=== PATIENT | female | born 1970 | race Caucasian/White ===

== ENCOUNTER 2018-05-15 20:45 | Inpatient (IN) | payer MEDICAID ==
[~2018-05-15] VITALS: Ht 162.6 cm; Wt 67.6 kg
--- NOTE | ~2018-05-15 | MORECARE ---
CASE MANAGEMENT DISCHARGE SUMMARY PATIENT: LUPIS SLOAN UNIT: [id number] ADM DATE: 05/15/18 AGE: 47 : 66 SEX: F ROOM/BED: D.1211 AUTHOR: RORO,DOC PHYSICIAN: REFERRING PHYSICIAN: ANUPAMA PETERS MD DATE OF SERVICE: 05/23/18 Discharge Plan Patient Name: LUPIS SLOAN Facility: [facility]:[place] : 1970 Planned Disposition: Home Anticipated Discharge Date: 05/23/18 Discharge Date: 05/23/2018 Expected LOS: 8 Initial Reviewer: [email or web address] Initial Review Date: 05/23/2018 Generated: 05/23/18 5:38 pm Comments DCP- Discharge Planning Updated by [email or web address]: Tony Titus on 05/23/18 3:[address] Patient Name: LUPIS SLOAN Admission Status: ER Accout number: [id number] Admission Date: 05-15-2018 : 1970 Admission Diagnosis: Attending: ANUPAMA PETERS Current LOS: 8 Anticipated DC Date: 05-23-2018 Planned Disposition: Home Primary Insurance: MEDICAID [place] PENDING Discharge Planning Comments: CM ATTEMPTED TO MEET WITH PT IN ROOM, PT GONE. BEDSIDE NURSE ADVISED PT MAY BE OUTSIDE HOSPITAL SMOKING. CM LATER MET WITH PT IN ROOM TO DISCUSS DISCHARGE PLANNING AND NEEDS. PT REPORTS LIVING AT HOME INDEPENDENTLY AND ALONE. PT HAS NO MEDICAL EQUIPMENT AND NO OUTSIDE SERVICES ASSISTING IN THE HOME. CM DISCUSSED AVAILABILITY OF HOME HEALTH, REHAB SERVICES AND MEDICAL EQUIPMENT. PT DENIES DISCHARGE NEEDS, REPORTS HER EX BROTHER IN LAW WILL PICK HER UP FOR DISCHARGE HOME. PT UNHAPPY ABOUT DISCHARGING AND REPORTS SHE HAS BEEN WAITING FOR DAYS FOR TEST RESULTS AND DOES NOT WANT TO LEAVE WITHOUT THEM. CM ASKED ABOUT WHAT TEST RESULTS, PT DID NOT KNOW, STATES THAT IT WOULD TELL THEM WHAT ANTIBIOTIC TO USE. CM REVIEWED DOCTORS NOTE WHICH INDICATED PT HAS E COLI. CM DISCUSSED THIS WITH PT AND INFORMED PT THAT THE DOCTOR PRESCRIBED ANTIBIOTIC FOR HOME USE BASED ON TEST RESULT. PT STATES THAT SHE DOES NOT WANT TO LEAVE AND WANTS TO SEE THE BLONDE DOCTOR WHO WAS IN HERE EARLIER. CM EXPLAINED TO PT THAT SHE HAS NO ACUTE NEED TO REMAIN IN THE HOSPITAL, HAS THE ABILITY TO LEAVE THE HOSPITAL AND WALK OUT ON FOOT TO SMOKE CIGARETTES, THE TESTING HAS BEEN DONE AND ORAL ANTIBIOTICS HAVE BEEN PRESCRIBED. PT AGAIN STATES SHE WANTS TO SEE THE DOCTOR. CM NOTIFIED BEDSIDE NURSE AND DR. FERRER. PT HAS NOT REPORTED DISCHARGE NEEDS, STATES A FRIEND WILL BE PICKING HER UP AT DISCHARGE. Food And Beverage Assistant: Tony Titus DCP- Discharge Planning Updated by [email or web address]: Freya Dejesus on 05/21/18 10:[address] AWAITING URINE CX SENSITIVES TO DETERMINE APPROPRIATE ANTIBIOTIC FOR DISCHARGE. WHEN RESULTS RECEIVED , WILL SWITCH TO PO AB AND DISCHARGE TO HOME PER MD NOTE. DCPIA - Discharge Planning Initial Assessment Updated by [id number]: Tony Titus on 05/23/18 4:24 pm * Is the patient Alert and Oriented? Yes * How many steps to enter\exit or inside your home? * PCP NONE * Pharmacy [facility] IN [place] * Preadmission Environment Home Alone * ADLs Independent * Equipment None * Other Equipment NO MEDICAL EQUIPMENT PROVIDER PREFERNCE * List name and contact numbers for known caregivers / representatives who currently or will assist patient after discharge: JONATHON BAEZ, EX BROTHER IN LAW, * Verbal permission to speak to the caregivers and representatives has been obtained from the patient. N/A * Community resources currently utilized None * Please name any agencies selected above. none * Additional services required to return to the preadmission environment? No * Can the patient safely return to the preadmission environment? Yes * Has this patient been hospitalized within the prior 30 days at any hospital? No Last DP export: 05/23/18 3:25 Patient Name: LUPIS SLOAN Page [id number] at 1638 All edits/amendments must be made on the electronic document DICTATION DATE: 05/23/18 163 CRM SPECIALIST: LISA 05/23/18 1638 RPT#: [id number] DC DATE:05/23/18 STATUS: DIS IN [facility] [address] [place] [address] END OF REPORT
--- NOTE | ~2018-05-15 | MORECARE ---
CASE MANAGEMENT DISCHARGE SUMMARY PATIENT: LUPIS SLOAN UNIT: [id number] ADM DATE: 05/15/18 AGE: 47 : 66 SEX: F ROOM/BED: D.1211 AUTHOR: HANNAH READ PHYSICIAN: REFERRING PHYSICIAN: ANUPAMA PETERS MD DATE OF SERVICE: 05/23/18 Discharge Plan Patient Name: LUPIS SLOAN Facility: [facility]:[place] : 1970 Planned Disposition: Home Anticipated Discharge Date: 05/23/18 Discharge Date: 05/23/2018 Expected LOS: 8 Initial Reviewer: [email or web address] Initial Review Date: 05/23/2018 Generated: 05/23/18 5:25 pm Comments DCP- Discharge Planning Updated by [email or web address]: Freya Dejesus on 05/21/18 10:[address] AWAITING URINE CX SENSITIVES TO DETERMINE APPROPRIATE ANTIBIOTIC FOR DISCHARGE. WHEN RESULTS RECEIVED , WILL SWITCH TO PO AB AND DISCHARGE TO HOME PER MD NOTE. DCPIA - Discharge Planning Initial Assessment Updated by [email or web address]: Tony Titus on 05/23/18 4:24 pm * Is the patient Alert and Oriented? Yes * How many steps to enter\exit or inside your home? * PCP NONE * Pharmacy [facility] * Preadmission Environment Home Alone * ADLs Independent * Equipment None * Other Equipment NO MEDICAL EQUIPMENT PROVIDER PREFERNCE * List name and contact numbers for known caregivers / representatives who currently or will assist patient after discharge: JONATHON BAEZ, EX BROTHER IN [facility], * Verbal permission to speak to the caregivers and representatives has been obtained from the patient. N/A * Community resources currently utilized None * Please name any agencies selected above. none * Additional services required to return to the preadmission environment? No * Can the patient safely return to the preadmission environment? Yes * Has this patient been hospitalized within the prior 30 days at any hospital? No Patient Name: LUPIS SLOAN Page [id number] at 1625 All edits/amendments must be made on the electronic document DICTATION DATE: 12/5 RELIEF MAN: DM 05/23/18 1625 RPT#: [id number] DC DATE:05/23/18 STATUS: DIS IN [facility] [address] [place] [address] END OF REPORT
[2018-05-15 22:01] LABS: ALBUMIN 3.1 g/dL (3.4-5.0); ALKALINE PHOSPHATASE 64 U/L (46-116); ALT (SGPT) 62 U/L (10-68); BILIRUBIN - TOTAL 0.49 mg/dL (0.2-1.3); CALC OSMOLALITY 277 mosm/kg (275-300); CALCIUM 8.4 mg/dL (8.5-10.1); CARBON DIOXIDE 27.8 mmol/L (21.0-32.0); CHLORIDE - SERUM 101 mmol/L (98-107); CREATININE - SERUM 1.1 mg/dL (0.6-1.3); GLUCOSE 111 mg/dL (74-106); POTASSIUM - SERUM 4.1 mmol/L (3.5-5.1); PROTEIN - SERUM 7.5 g/dL (6.4-8.2); SODIUM 138 mmol/L (136-145); UREA NITROGEN 14 mg/dL (7-18); eGFR NON AFRICAN AMERICAN 56 mL/min (90-120)
[2018-05-15 22:09] LABS: AMYLASE - SERUM 59 U/L (25-115); BASOPHILS 0.1 % (0-2); EOSINOPHILS 0.7 % (0-7); HEMATOCRIT 37.4 % (36.0-48.0); HEMOGLOBIN 12.9 g/dL (12-16); IMMATURE GRANULOCYTES 0.3 % (0-5); LIPASE 184 U/L (73-393); LYMPHOCYTES 26.4 % (15-50); MCH 32.7 pg (26.0-34.0); MCHC 34.5 g/dL (31.0-37.0); MCV 94.7 fL (80.0-100.0); MEAN PLATELET VOLUME 9.2 fL (7.4-10.4); MONOCYTES 15.2 % (2-11); NEUTROPHILS 57.3 % (40-80); PLATELET COUNT 296 10x3/uL (130-400); RBC 3.95 10x6/uL (4.00-5.40); RDW 13.1 % (11.5-14.5); TROPONIN-I < 0.017 ng/mL (0.000-0.060); WBC 10.5 10x3/uL (4.8-10.8)
[2018-05-15 22:28] LABS: APPEARANCE HAZY (CLEAR); BILIRUBIN NEGATIVE (NEGATIVE); COLOR YELLOW (YELLOW); GLUCOSE NEGATIVE (NEGATIVE); KETONE NEGATIVE (NEGATIVE); NITRITE POSITIVE (NEGATIVE); PROTEIN NEGATIVE (NEGATIVE); UROBILINOGEN NORMAL (NORMAL)
[2018-05-15 22:31] LABS: BACTERIA MANY /hpf (NONE SEEN); EPITHELIAL CELLS 0-5 /hpf (0-5); RED CELLS - URINE 0-5 /hpf (0-5)
[2018-05-15 23:11] LABS: HCG URINE NEGATIVE (NEGATIVE)
[2018-05-16] VITALS (7 sets, daily range): BP systolic 95–122; BP diastolic 35–92; BMI 24.0
[2018-05-16 06:22] LABS: BASOPHILS 0.1 % (0-2); EOSINOPHILS 1.4 % (0-7); HEMATOCRIT 34.4 % (36.0-48.0); HEMOGLOBIN 11.7 g/dL (12-16); IMMATURE GRANULOCYTES 0.3 % (0-5); LYMPHOCYTES 33.6 % (15-50); MCH 32.2 pg (26.0-34.0); MCV 94.8 fL (80.0-100.0); MEAN PLATELET VOLUME 9.1 fL (7.4-10.4); MONOCYTES 15.4 % (2-11); NEUTROPHILS 49.2 % (40-80); PLATELET COUNT 241 10x3/uL (130-400); RBC 3.63 10x6/uL (4.00-5.40)
[2018-05-16 06:53] LABS: ALBUMIN 2.4 g/dL (3.4-5.0); ALKALINE PHOSPHATASE 50 U/L (46-116); ALT (SGPT) 48 U/L (10-68); BILIRUBIN - TOTAL 0.38 mg/dL (0.2-1.3); CALC OSMOLALITY 285 mosm/kg (275-300); CALCIUM 7.8 mg/dL (8.5-10.1); CARBON DIOXIDE 24.9 mmol/L (21.0-32.0); CHLORIDE - SERUM 111 mmol/L (98-107); CREATININE - SERUM 0.8 mg/dL (0.6-1.3); GLUCOSE 106 mg/dL (74-106); SODIUM 144 mmol/L (136-145); UREA NITROGEN 10 mg/dL (7-18); eGFR NON AFRICAN AMERICAN 81 mL/min (90-120)
[2018-05-16 14:31] LABS: % SATURATION 5 % (15-55); IRON 18 ug/dl (35-150); TOTAL IRON BIND CAPACITY 319 ug/dl (260-445); UNSAT IRON BIND CAPACITY 301 ug/dl (150-375)
[2018-05-16 21:42] LABS: UDS - AMPHET POSITIVE QUAL (NEGATIVE); UDS - BARB NEGATIVE QUAL (NEGATIVE); UDS - BENZO NEGATIVE QUAL (NEGATIVE); UDS - COCAINE NEGATIVE QUAL (NEGATIVE); UDS - OPIATE POSITIVE QUAL (NEGATIVE); UDS - PCP NEGATIVE QUAL (NEGATIVE); UDS - THC POSITIVE QUAL (NEGATIVE)
[2018-05-17] VITALS: BP 120/73
[2018-05-17 04:28] VITALS: BP 108/67
[2018-05-17 06:49] LABS: BASOPHILS 0.1 % (0-2); EOSINOPHILS 1.2 % (0-7); HEMOGLOBIN 10.8 g/dL (12-16); IMMATURE GRANULOCYTES 0.3 % (0-5); LYMPHOCYTES 25.8 % (15-50); MCHC 33.8 g/dL (31.0-37.0); MCV 94.7 fL (80.0-100.0); MEAN PLATELET VOLUME 9.1 fL (7.4-10.4); MONOCYTES 14.6 % (2-11); PLATELET COUNT 241 10x3/uL (130-400); RBC 3.38 10x6/uL (4.00-5.40); RDW 13.4 % (11.5-14.5); WBC 6.9 10x3/uL (4.8-10.8)
[2018-05-17 07:02] LABS: CALC OSMOLALITY 277 mosm/kg (275-300); CALCIUM 7.3 mg/dL (8.5-10.1); CARBON DIOXIDE 24.3 mmol/L (21.0-32.0); CHLORIDE - SERUM 108 mmol/L (98-107); CREATININE - SERUM 0.7 mg/dL (0.6-1.3); GLUCOSE 99 mg/dL (74-106); POTASSIUM - SERUM 3.8 mmol/L (3.5-5.1); SODIUM 141 mmol/L (136-145); UREA NITROGEN 5 mg/dL (7-18); eGFR NON AFRICAN AMERICAN > 90 mL/min (90-120)
[2018-05-17 07:29] LABS: FOLATE (FOLIC ACID) - SERUM 8.7 ng/mL (>3.0)
[2018-05-17 07:40] VITALS: BP 108/65
[2018-05-17 12:05] VITALS: BP 114/68
[2018-05-17 20:00] VITALS: BP 120/70
[2018-05-18 00:30] VITALS: BP 123/72
[2018-05-18 03:51] VITALS: BP 120/58
[2018-05-18 05:50] LABS: BASOPHILS 0 % (0-2); EOSINOPHILS 2.3 % (0-7); HEMATOCRIT 32.9 % (36.0-48.0); HEMOGLOBIN 11.1 g/dL (12-16); LYMPHOCYTES 40.8 % (15-50); MCH 32.1 pg (26.0-34.0); MCHC 33.7 g/dL (31.0-37.0); MCV 95.1 fL (80.0-100.0); MONOCYTES 13.5 % (2-11); NEUTROPHILS 43.4 % (40-80); PLATELET COUNT 248 10x3/uL (130-400); RBC 3.46 10x6/uL (4.00-5.40); RDW 13.4 % (11.5-14.5)
[2018-05-18 05:59] LABS: WBC 5.1 10x3/uL (4.8-10.8)
[2018-05-18 06:16] LABS: CALC OSMOLALITY 282 mosm/kg (275-300); CALCIUM 7.5 mg/dL (8.5-10.1); CHLORIDE - SERUM 111 mmol/L (98-107); CREATININE - SERUM 0.6 mg/dL (0.6-1.3); GLUCOSE 75 mg/dL (74-106); POTASSIUM - SERUM 3.8 mmol/L (3.5-5.1); SODIUM 144 mmol/L (136-145); UREA NITROGEN 5 mg/dL (7-18); eGFR NON AFRICAN AMERICAN > 90 mL/min (90-120)
[2018-05-18 07:45] VITALS: BP 120/73
[2018-05-18 11:48] VITALS: BP 125/73
[2018-05-18 19:34] VITALS: BP 97/60
[2018-05-19 00:04] VITALS: BP 119/65
[2018-05-19 05:06] VITALS: BP 147/91
[2018-05-19 06:40] LABS: BASOPHILS 0.2 % (0-2); HEMATOCRIT 32.7 % (36.0-48.0); HEMOGLOBIN 10.9 g/dL (12-16); IMMATURE GRANULOCYTES 0.2 % (0-5); LYMPHOCYTES 37.5 % (15-50); MCH 31.6 pg (26.0-34.0); MCHC 33.3 g/dL (31.0-37.0); MCV 94.8 fL (80.0-100.0); MEAN PLATELET VOLUME 9.3 fL (7.4-10.4); MONOCYTES 10.4 % (2-11); NEUTROPHILS 49.7 % (40-80); RBC 3.45 10x6/uL (4.00-5.40); RDW 13.3 % (11.5-14.5)
[2018-05-19 06:42] LABS: PLATELET COUNT 299 10x3/uL (130-400); WBC 6.4 10x3/uL (4.8-10.8)
[2018-05-19 06:50] LABS: CALC OSMOLALITY 276 mosm/kg (275-300); CARBON DIOXIDE 24.8 mmol/L (21.0-32.0); CHLORIDE - SERUM 108 mmol/L (98-107); GLUCOSE 85 mg/dL (74-106); POTASSIUM - SERUM 3.7 mmol/L (3.5-5.1); SODIUM 141 mmol/L (136-145); UREA NITROGEN 5 mg/dL (7-18); eGFR NON AFRICAN AMERICAN 81 mL/min (90-120)
[2018-05-19 06:51] LABS: CREATININE - SERUM 0.8 mg/dL (0.6-1.3)
[2018-05-19 08:21] VITALS: BP 152/91
[2018-05-19 12:55] VITALS: BP 142/92
[2018-05-19 16:18] VITALS: BP 125/75
[2018-05-19 20:00] VITALS: BP 145/78
[2018-05-20 04:00] VITALS: BP 157/85
[2018-05-20 07:25] VITALS: BP 141/83
[2018-05-20 07:28] LABS: BASOPHILS 0.2 % (0-2); HEMOGLOBIN 11.2 g/dL (12-16); IMMATURE GRANULOCYTES 0.3 % (0-5); LYMPHOCYTES 32.2 % (15-50); MCH 31.5 pg (26.0-34.0); MCHC 32.9 g/dL (31.0-37.0); MCV 95.5 fL (80.0-100.0); MEAN PLATELET VOLUME 9.3 fL (7.4-10.4); MONOCYTES 9.2 % (2-11); NEUTROPHILS 56.1 % (40-80); PLATELET COUNT 308 10x3/uL (130-400); RBC 3.56 10x6/uL (4.00-5.40); RDW 13.1 % (11.5-14.5)
[2018-05-20 07:47] LABS: CALC OSMOLALITY 282 mosm/kg (275-300); CALCIUM 8.4 mg/dL (8.5-10.1); CARBON DIOXIDE 29.4 mmol/L (21.0-32.0); CHLORIDE - SERUM 108 mmol/L (98-107); CREATININE - SERUM 0.7 mg/dL (0.6-1.3); GLUCOSE 118 mg/dL (74-106); POTASSIUM - SERUM 4.8 mmol/L (3.5-5.1); SODIUM 143 mmol/L (136-145); UREA NITROGEN 5 mg/dL (7-18); eGFR NON AFRICAN AMERICAN > 90 mL/min (90-120)
[2018-05-20 11:32] VITALS: BP 170/98
[2018-05-20 15:23] VITALS: BP 143/84
[2018-05-20 18:00] VITALS: BP 143/78
[2018-05-21 00:30] VITALS: BP 147/81
[2018-05-21 04:00] VITALS: BP 188/100
[2018-05-21 06:52] LABS: BASOPHILS 0.2 % (0-2); EOSINOPHILS 2.3 % (0-7); HEMATOCRIT 33.7 % (36.0-48.0); HEMOGLOBIN 11.2 g/dL (12-16); IMMATURE GRANULOCYTES 0.3 % (0-5); LYMPHOCYTES 32.9 % (15-50); MCH 31.2 pg (26.0-34.0); MCHC 33.2 g/dL (31.0-37.0); MCV 93.9 fL (80.0-100.0); MEAN PLATELET VOLUME 9.2 fL (7.4-10.4); MONOCYTES 8.2 % (2-11); NEUTROPHILS 56.1 % (40-80); PLATELET COUNT 343 10x3/uL (130-400); RBC 3.59 10x6/uL (4.00-5.40); RDW 12.9 % (11.5-14.5)
[2018-05-21 07:11] LABS: CALCIUM 8.1 mg/dL (8.5-10.1); CARBON DIOXIDE 26.6 mmol/L (21.0-32.0); CHLORIDE - SERUM 106 mmol/L (98-107); CREATININE - SERUM 0.8 mg/dL (0.6-1.3); GLUCOSE 108 mg/dL (74-106); SODIUM 142 mmol/L (136-145); eGFR NON AFRICAN AMERICAN 81 mL/min (90-120)
[2018-05-21 07:12] LABS: CALC OSMOLALITY 281 mosm/kg (275-300); POTASSIUM - SERUM 3.7 mmol/L (3.5-5.1); UREA NITROGEN 8 mg/dL (7-18)
[2018-05-21 08:47] VITALS: BP 149/89
[2018-05-21 11:03] VITALS: Ht 162.6 cm; Wt 67.6 kg
[2018-05-21 12:07] VITALS: BP 174/88
[2018-05-21 15:14] VITALS: BP 129/78
[2018-05-21 20:23] VITALS: BP 135/76
[2018-05-22 00:33] VITALS: BP 150/72
[2018-05-22 08:35] VITALS: BP 160/87
[2018-05-22 11:41] LABS: APPEARANCE CLEAR (CLEAR); BILIRUBIN NEGATIVE (NEGATIVE); COLOR YELLOW (YELLOW); GLUCOSE NEGATIVE (NEGATIVE); KETONE NEGATIVE (NEGATIVE); NITRITE POSITIVE (NEGATIVE); PROTEIN NEGATIVE (NEGATIVE); UROBILINOGEN NORMAL (NORMAL); WHITE CELLS - URINE 0-5 /hpf (0-5)
[2018-05-22 11:42] LABS: BACTERIA FEW /hpf (NONE SEEN); EPITHELIAL CELLS 0-5 /hpf (0-5); RED CELLS - URINE 0-5 /hpf (0-5)
[2018-05-22 17:56] VITALS: BP 114/61
[2018-05-22 19:06] LABS: AEROBE ID Final report (()); RESULT 1 Escherichia coli (())
[2018-05-22 20:00] VITALS: BP 102/54
[2018-05-23 00:02] VITALS: BP 105/55
[2018-05-23 04:00] VITALS: BP 132/76
[2018-05-23 06:45] LABS: BASOPHILS 0.3 % (0-2); HEMATOCRIT 40.2 % (36.0-48.0); HEMOGLOBIN 13.4 g/dL (12-16); IMMATURE GRANULOCYTES 1.2 % (0-5); LYMPHOCYTES 30.4 % (15-50); MCH 32.2 pg (26.0-34.0); MCHC 33.3 g/dL (31.0-37.0); MCV 96.6 fL (80.0-100.0); MEAN PLATELET VOLUME 9.4 fL (7.4-10.4); MONOCYTES 11.3 % (2-11); NEUTROPHILS 53.8 % (40-80); PLATELET COUNT 427 10x3/uL (130-400); RBC 4.16 10x6/uL (4.00-5.40); RDW 13.5 % (11.5-14.5); WBC 6.6 10x3/uL (4.8-10.8)
[2018-05-23 07:33] LABS: CALCIUM 9.3 mg/dL (8.5-10.1); CARBON DIOXIDE 30.3 mmol/L (21.0-32.0); CHLORIDE - SERUM 102 mmol/L (98-107); CREATININE - SERUM 0.8 mg/dL (0.6-1.3); GLUCOSE 78 mg/dL (74-106); SODIUM 141 mmol/L (136-145); eGFR NON AFRICAN AMERICAN 81 mL/min (90-120)
[2018-05-23 07:39] LABS: CALC OSMOLALITY 282 mosm/kg (275-300); POTASSIUM - SERUM 4.7 mmol/L (3.5-5.1); UREA NITROGEN 22 mg/dL (7-18)
[2018-05-23 11:06] VITALS: BP 138/75
[2018-05-23] MEDS ORDERED: LEVOFLOXACIN500 MG PO (12:12)
[2018-05-23] MEDS ORDERED: Nicoderm [PBKC] TRANSDERM (12:13)
[2018-05-23] MEDS ORDERED: PHENAZOPYRIDIN100 MG PO (12:13)
[2018-05-23] MEDS ORDERED: FLORAJEN3 CAPS460 MG PO (12:14)
[2018-05-23] MEDS ORDERED: NORCO-7.5 PO (12:19)
== END 2018-05-23 14:50 | disposition home or self-care (01) | DRG 690 ==
LOC: D.ER 20:45 → D.WS 23:56 → D.EDHOLD 23:56 → D.WS 05-16 13:19 → D.M3 05-18 15:33
PROVIDERS: Emergency Medicine; Family Medicine; Internal Medicine Nephrology
DX: N10 Acute pyelonephritis (principal); F17.213 Nicotine dependence, cigarettes, with withdrawal; B96.20 Unspecified Escherichia coli [E. coli] as the cause of diseases classified elsewhere; B19.20 Unspecified viral hepatitis C without hepatic coma; D64.9 Anemia, unspecified; F15.10 Other stimulant abuse, uncomplicated

== ENCOUNTER 2018-05-26 14:16 | Emergency (ER) | payer SELFPAY ==
[~2018-05-26] VITALS: Ht 162.6 cm; Wt 65.9 kg
[~2018-05-26 14:16] MED LIST: FLORAJEN3 CAPS460 MG PO; LEVOFLOXACIN500 MG PO; NORCO-7.5 PO; Nicoderm [PBKC] TRANSDERM; PHENAZOPYRIDIN100 MG PO
[2018-05-26 14:20] VITALS: Ht 162.6 cm; Wt 65.9 kg
[2018-05-26 14:45] LABS: BASOPHILS 0.2 % (0-2); EOSINOPHILS 1.3 % (0-7); HEMATOCRIT 43.4 % (36.0-48.0); HEMOGLOBIN 14.7 g/dL (12-16); IMMATURE GRANULOCYTES 0.4 % (0-5); LYMPHOCYTES 30.8 % (15-50); MCH 32.7 pg (26.0-34.0); MCHC 33.9 g/dL (31.0-37.0); MCV 96.4 fL (80.0-100.0); MEAN PLATELET VOLUME 8.9 fL (7.4-10.4); MONOCYTES 12.2 % (2-11); NEUTROPHILS 55.1 % (40-80); PLATELET COUNT 438 10x3/uL (130-400); RDW 14.1 % (11.5-14.5); WBC 9.7 10x3/uL (4.8-10.8)
[2018-05-26 14:47] LABS: COLOR YELLOW (YELLOW)
[2018-05-26 14:48] LABS: APPEARANCE CLEAR (CLEAR); BILIRUBIN NEGATIVE (NEGATIVE); EPITHELIAL CELLS 0-5 /hpf (0-5); GLUCOSE NEGATIVE (NEGATIVE); KETONE NEGATIVE (NEGATIVE); NITRITE NEGATIVE (NEGATIVE); PROTEIN NEGATIVE (NEGATIVE); RED CELLS - URINE 0-5 /hpf (0-5); UROBILINOGEN NORMAL (NORMAL); WHITE CELLS - URINE OCC /hpf (0-5)
[2018-05-26 14:56] LABS: ALBUMIN 3.9 g/dL (3.4-5.0); ANION GAP 15.6 mmol/L (8-16); BILIRUBIN - TOTAL 0.41 mg/dL (0.2-1.3); CALCIUM 9.8 mg/dL (8.5-10.1); CARBON DIOXIDE 28.9 mmol/L (21.0-32.0); CREATININE - SERUM 0.9 mg/dL (0.6-1.3); POTASSIUM - SERUM 4.5 mmol/L (3.5-5.1); PROTEIN - SERUM 9.5 g/dL (6.4-8.2)
[2018-05-26 15:03] LABS: AMYLASE - SERUM 57 U/L (25-115); LIPASE 143 U/L (73-393)
[2018-05-26 15:49] VITALS: BP 137/73
[2018-05-26] MEDS ORDERED: CIPRO250 MG PO (16:09)
[2018-05-26] MEDS ORDERED: ULTRAM50 MG PO (16:13)
== END 2018-05-26 16:40 | disposition home or self-care (01) ==
LOC: D.ER 14:16
PROVIDERS: Emergency Medicine
DX: N12 Tubulo-interstitial nephritis, not specified as acute or chronic (principal); E88.09 Other disorders of plasma-protein metabolism, not elsewhere classified; R30.0 Dysuria; R11.10 Vomiting, unspecified; R50.9 Fever, unspecified; F17.200 Nicotine dependence, unspecified, uncomplicated

== ENCOUNTER 2018-10-25 09:42 | Emergency (ER) | payer OTHER ==
[~2018-10-25] VITALS: Ht 162.6 cm; Wt 73.6 kg
[~2018-10-25 09:42] MED LIST changes: +CIPRO250 MG PO; +ULTRAM50 MG PO
[2018-10-25 09:56] VITALS: Ht 162.6 cm; Wt 73.6 kg
--- NOTE | 2018-10-25 10:27 | NUR ---
PT IS A LOW RISK PER ASSESSMENT. PT DENIES SI. RESOURCES GIVEN AND REVIEWED WITH PT. PT VERBALIZED UNDERSTANDING.
[2018-10-25 11:21] LABS: APPEARANCE CLEAR (CLEAR); BACTERIA FEW /hpf (NONE SEEN); BILIRUBIN NEGATIVE (NEGATIVE); COLOR YELLOW (YELLOW); EPITHELIAL CELLS OCC /hpf (0-5); GLUCOSE NEGATIVE (NEGATIVE); KETONE NEGATIVE (NEGATIVE); NITRITE NEGATIVE (NEGATIVE); PROTEIN NEGATIVE (NEGATIVE); RED CELLS - URINE 0-5 /hpf (0-5); UROBILINOGEN NORMAL (NORMAL)
[2018-10-25] MEDS ORDERED: MACROBID100 MG PO (11:53)
[2018-10-25] MEDS ORDERED: TORADOL10 MG PO (11:53)
[2018-10-25 12:29] VITALS: BP 132/88
== END 2018-10-25 12:30 | disposition home or self-care (01) ==
LOC: D.ER 09:42
PROVIDERS: Emergency Medicine
DX: L84 Corns and callosities (principal); R30.0 Dysuria

== ENCOUNTER 2019-08-07 12:57 | Emergency (ER) | payer OTHER ==
[~2019-08-07] VITALS: Ht 162.6 cm; Wt 68.2 kg
[~2019-08-07 12:57] MED LIST changes: +MACROBID100 MG PO; +TORADOL10 MG PO
[2019-08-07 13:30] VITALS: Ht 162.6 cm; Wt 68.2 kg
[2019-08-07 14:29] LABS: BILIRUBIN NEGATIVE (NEGATIVE); GLUCOSE NEGATIVE (NEGATIVE); KETONE NEGATIVE (NEGATIVE); NITRITE NEGATIVE (NEGATIVE); UROBILINOGEN NORMAL (NORMAL)
[2019-08-07 15:47] LABS: BASOPHILS 0.1 % (0-2); EOSINOPHILS 2.8 % (0-7); HEMOGLOBIN 14.4 g/dL (12-16); IMMATURE GRANULOCYTES 0.1 % (0-5); LYMPHOCYTES 34.1 % (15-50); MCH 33.3 pg (26.0-34.0); MCHC 35.1 g/dL (31.0-37.0); MCV 94.7 fL (80.0-100.0); MEAN PLATELET VOLUME 9.1 fL (7.4-10.4); MONOCYTES 10.4 % (2-11); NEUTROPHILS 52.5 % (40-80); PLATELET COUNT 317 10x3/uL (130-400); RBC 4.33 10x6/uL (4.00-5.40); RDW 12.9 % (11.5-14.5); WBC 7.5 10x3/uL (4.8-10.8)
[2019-08-07 16:01] LABS: CALC OSMOLALITY 277 mosm/kg (275-300); CALCIUM 8.8 mg/dL (8.5-10.1); CARBON DIOXIDE 26.2 mmol/L (21.0-32.0); CHLORIDE - SERUM 104 mmol/L (98-107); CREATININE - SERUM 0.8 mg/dL (0.6-1.3); GLUCOSE 110 mg/dL (74-106); POTASSIUM - SERUM 4.6 mmol/L (3.5-5.1); SODIUM 138 mmol/L (136-145); UREA NITROGEN 15 mg/dL (7-18); eGFR NON AFRICAN AMERICAN 80 mL/min (90-120)
[2019-08-07 16:06] LABS: ALBUMIN 3.4 g/dL (3.4-5.0); ALKALINE PHOSPHATASE 96 U/L (30-120); ALT (SGPT) 399 U/L (10-68); BILIRUBIN - TOTAL 0.47 mg/dL (0.2-1.3); PROTEIN - SERUM 7.6 g/dL (6.4-8.2)
[2019-08-07 16:53] LABS: UDS - AMPHET POSITIVE QUAL (NEGATIVE); UDS - BARB NEGATIVE QUAL (NEGATIVE); UDS - BENZO NEGATIVE QUAL (NEGATIVE); UDS - COCAINE NEGATIVE QUAL (NEGATIVE); UDS - OPIATE NEGATIVE QUAL (NEGATIVE); UDS - PCP NEGATIVE QUAL (NEGATIVE); UDS - THC POSITIVE QUAL (NEGATIVE)
[2019-08-07 19:05] VITALS: BP 129/72
== END 2019-08-07 19:05 | disposition home or self-care (01) ==
LOC: D.ER 12:57
PROVIDERS: Emergency Medicine
DX: M54.5 Low back pain (principal); F10.10 Alcohol abuse, uncomplicated; Y90.0 Blood alcohol level of less than 20 mg/100 ml; F15.10 Other stimulant abuse, uncomplicated